=== PATIENT | female | born 1965 | race African-American/Black ===

== ENCOUNTER 2016-07-23 10:34 | Day surgery (SDC) | payer OTHER ==
[2016-07-20 18:00] LABS: BASOPHILS 0.3 %; BASOPHILS ABSOLUTE 0.02 10/3/uL (0.0-0.16); EOSINOPHILS 0.9 %; EOSINOPHILS ABSOLUTE 0.06 10/3/uL (0.0-0.53); HEMATOCRIT 37.5 % (36.0-48.0); HEMOGLOBIN 12.3 g/dL (12.0-16.0); IMMATURE GRANULOCYTES 0.1 %; IMMATURE GRANULOCYTES ABSOLUTE 0.01 10/3/uL (0.0-0.11); LYMPHOCYTES 33.4 %; LYMPHOCYTES ABSOLUTE 2.26 10/3/uL (0.67-4.30); MEAN CORPUS HGB CONC 32.8 g/dL (32.0-36.0); MEAN CORPUSCULAR HEMOGLOB 26.6 pg (26.0-34.0); MEAN PLATELET VOLUME 9.2 fL (9.2-13.0); MONOCYTES 7.7 %; MONOCYTES ABSOLUTE 0.52 10/3/uL (0.21-1.20); NEUTROPHILS 57.6 %; PLATELET COUNT 225 10/3/uL (150-400); RBC DISTRIBUTION WIDTH 15.4 % (12.0-16.0); RED CELL COUNT 4.63 10/6/uL (4.0-5.6); WHITE BLOOD CELLS 6.8 10/3/uL (4.5-10.5)
[2016-07-20 18:01] LABS: MANUAL DIFF NO %
[2016-07-20 18:14] LABS: PARTIAL THROMBO TIME 29.6 SEC (22.5-37.2); PROTIME (NOT ORD) 13.1 SEC (12.0-14.5)
[2016-07-20 18:38] LABS: PFA (COL/EPI) 121 SEC (72-180)
--- NOTE | ~2016-07-23 | OP ---
Record Of Operation [facility] [address] [place]. [address] NAME: CRISSY MYLES : 63 STATUS : [facility]#: [id number] AGE: 51 ADM/REG DATE : 07/23/16 MR#: [id number] REPORT SERV DATE: 07/24/16 DICTATED BY: BRENNA AWAD DATE: 07/24/16 REPORT STATUS : Draft TRANSCRIBED BY: VIOLETA DATE: 07/24/16 DATE OF PROCEDURE: 07/23/2016 Her former name was Cristino. PREOPERATIVE DIAGNOSIS: Surgical absence of the breast. Breast deformity. POSTOPERATIVE DIAGNOSIS: Surgical absence of the breast. Breast deformity. PROCEDURE: Nipple-areolar complex reconstruction and fat grafting for deformity. INDICATIONS AND FINDINGS OF THE PROCEDURE: This 51-year-old female, status post complex reconstruction including latissimus dorsi tissue expansion reconstruction for treatment of breast cancer and postoperative radiation. She is now appropriate for fat grafting of soft tissue envelope deformities and nipple reconstruction. DETAILS OF THE PROCEDURE: The patient was brought to the operating room after adequate sedation was achieved. She was prepped and draped in the usual sterile fashion for the above-described procedure. First, our attention was turned to the abdomen. Through 2 small stab incisions, the abdomen was infiltrated with about 350 mL of wetting solution. Approximately 350 mL of fatty aspirate was then removed to RevIon Core apparatus. This was treated appropriately and then transferred into 10 and 3 mL syringes. Using a topographical map placed prior to the surgery and small stab incisions, 160 mL was transferred into the superior aspect principally of the left breast and 100 mL into the right. Please note that techniques used included rogotomies with both a 14-gauge Angiocath and a [place] cannula. With this completed, then our attention was turned to nipple reconstruction. First on the left. Markings were placed for a Vane nipple reconstruction. Incisions were made and dissection was carried down to the level of the underlying fat. Two fatty tab flaps were created. Hemostasis was obtained of the donor sites. The fatty tab flaps were brought into opposition with 3-0 Monocryl. The donor sites were closed with 3-0 Monocryl. The skin was then closed where necessary with 5-0 fast-absorbing gut. Our attention was then turned contralaterally. Here again, using the latissimus dorsi skin paddle, incisions were made, and dissection was carried down to the level of the underlying fat. Two fatty tab flaps were created. Hemostasis was obtained at the donor site. The donor sites were closed with 3-0 Monocryl. The fatty tab flaps were brought into opposition with 3-0 Monocryl. The skin was then closed where necessary with 5-0 fast-absorbing gut. The hypertrophic scar extending on the right approximately 6 cm around the superior aspect of her skin paddle to radiated tissue inset was excised. This was about 1 cm in width at its widest point. Dissection was carried down to the level of the underlying deep dermis and fat and then hemostasis was corrected and this was closed with multiple layers of Monocryl through to an intracuticular in the skin. She was cleansed with peroxide. Light dressings were placed. Nipple Pak were placed and she was remanded to the recovery room in stable condition. All sponge and needle counts were correct. Record Of Operation [address] [address] NAME: CRISSY MYLES : 63 STATUS : [facility] PAT#: [id number] AGE: 51 ADM/REG DATE : 07/23/16 MR#: [id number] REPORT SERV DATE: 07/24/16 DICTATED BY: BRENNA AWAD DATE: 07/24/16 REPORT STATUS : Draft TRANSCRIBED BY: VIOLETA DATE: 07/24/16 MARLINE/VIOLETA Brenna Awad M.D. / [id number] CC: Chel Peck
[~2016-07-23 10:34] MED LIST: ALOGLIPTIN PO; AMB10 PO; AT25 PO; BIOTIN10 MG PO; CLARIT10 PO; GLUCPH PO; JANUMET1 TA1 PO; K500 PO; PERCOCET1 TA2 PO; ZOCOR40 PO
[2016-07-23 11:54] LABS: BUN (BLOOD UREA NITROGEN) 12 MG/DL (6-23); CALCIUM, SERUM 9.4 MG/DL (8.5-10.4); CHLORIDE, SERUM 104 MMOL/L (96-112); CO2 (CARBON DIOXIDE) 30 MMOL/L (24-34); CREATININE 0.77 MG/DL (0.55-1.02); GFR AFRICAN AMERICAN 103 ML/MIN (>=60); GFR NON AFRICAN AMERICAN 89 ML/MIN (>=60); GLUCOSE, SERUM 102 MG/DL (60-99); POTASSIUM, SERUM 3.8 MMOL/L (3.5-5.3); SODIUM, SERUM 142 MMOL/L (135-148)
== END 2016-07-23 16:45 | disposition home or self-care (01) ==
LOC: SDC 10:34
PROVIDERS: Surgery Surgery of the Hand
PROC: 3E013TZ Introduction of Destructive Agent into Subcutaneous Tissue, Percutaneous Approach (ICD-10-PCS; 2016-07-23)
PROC: 3E013TZ Introduction of Destructive Agent into Subcutaneous Tissue, Percutaneous Approach (ICD-10-PCS; 2016-07-23)
PROC: 0HRX07Z Replacement of Left Nipple with Autologous Tissue Substitute, Open Approach (ICD-10-PCS; principal; 2016-07-23 12:00)
PROC: 0HRW07Z Replacement of Right Nipple with Autologous Tissue Substitute, Open Approach (ICD-10-PCS; 2016-07-23 12:00)
DX: N65.0 Deformity of reconstructed breast (principal); G62.9 Polyneuropathy, unspecified; E78.5 Hyperlipidemia, unspecified; E11.9 Type 2 diabetes mellitus without complications; Z90.710 Acquired absence of both cervix and uterus; Z79.899 Other long term (current) drug therapy; Z79.891 Long term (current) use of opiate analgesic; Z88.8 Allergy status to other drugs, medicaments and biological substances
CPT/HCPCS: 80048; 82962; 85025; 85576; 85610; 85730; 93005; J0690; J1885; J2250; J2270; J2405; J3010